=== PATIENT | female | born 1970 | race Caucasian/White ===

== ENCOUNTER 2024-03-19 09:00 | Emergency (ER) | payer OTHER ==
[2024-03-19 09:40] VITALS: BP 153/80; O2SAT 97
--- NOTE | 2024-03-19 10:25 | ED Physician Documentation ---
PD HPI UPPER EXT INJURY - Stated complaint Stated Complaint: RT FINGER LAC - Chief complaint Chief Complaint: Laceration - History obtained from History obtained from: Patient - History of Present Illness Location: Right, Finger Type of injury: Blunt / blow (recycling bin tipped and fell as she was holding it, smashing forcefully on her fingers tip onto the ground. Main injury middle finger but also some of the index finger tip right hand.) Where injury occurred: Work Timing - onset: Today Timing - details: Abrupt onset, Still present Improved by: Rest Worsened by: Moving, Palpating Associated symptoms: Swelling (finger tip with swellng and tedner but mainly laceration of nailbed with lifting of base of nail from bed.). No: Weakness, Numbness Similar symptoms before: Has not had sx before Recently seen: Not recently seen Review of Systems Neurologic: denies: Focal weakness, Numbness PD PAST MEDICAL HISTORY - Past Medical History Past Medical History: Yes Cardiovascular: Hypertension, High cholesterol Respiratory: None Neuro: CVA Endocrine/Autoimmune: Type 2 diabetes GI: None BULB GROWER: None : None HEENT: None Psych: None Musculoskeletal: None Derm: None - Past Surgical History Past Surgical History: Yes Ortho: Arthroscopic surgery /BULB GROWER: section - Present Medications Home Medications: Ambulatory Orders Medication Instructions Recorded Confirmed Aspirin [Aspirin EC] 81 mg PO DAILY 03/19/24 03/19/24 Atorvastatin Calcium 40 mg PO DAILY 03/19/24 03/19/24 HYDROcod/ACETAM 5/325 [[place] 5/325] 1 ea PO Q6H PRN #10 tablet 03/19/24 Losartan Potassium [Cozaar] 100 mg PO DAILY 03/19/24 03/19/24 Meloxicam [Mobic] 7.5 mg PO BID 10 Days #20 tablet 03/19/24 cephALEXin [Keflex] 500 mg PO TID #20 cap 03/19/24 metFORMIN [Glucophage] 500 mg PO BIDWM 03/19/24 03/19/24 - Allergies Allergies/Adverse Reactions: Allergies Allergy/AdvReac Type Severity Reaction Status Date / Time No Known Drug Allergies Allergy Verified 03/19/24 09:03 - Social History Does the pt smoke?: No Smoking Status: Former smoker Does the pt drink ETOH?: Yes Does the pt have substance abuse?: No - Immunizations Immunizations are current?: Yes - POLST Patient has POLST: No PD ED PE NORMAL - Vitals Vital signs reviewed: Yes - General General: Alert and oriented X 3, Well developed/nourished - Derm Derm: Warm and dry - Extremities Extremities: Other (right middle finger tip with tenderness and swelling of distal phalanx, with avulsion of proximal 2/3 of the nail from bed with lac underneath. No FB. The nychial fold is intact. Sensation at tip palmar aspect is good. index finger with mild abrasion dorsal. nailbed intact. ) - Neuro Neuro: Alert and oriented X 3, No motor deficit (flex and extension at DIP is good. ), No sensory deficit Results - Vitals Vitals: Vital Signs - 24 hr 03/19/24 09:04 Temperature 36.3 C L Heart Rate 74 Respiratory 16 Rate Blood Pressure 153/80 H O2 Saturation 97 - Rads (name of study) right finger Relevant Findings:: Prelim report reviewed, EMP independent interpretation of test (tuft fracture min displaced, not involving joint. ) Procedures - Laceration (location) right index finger tip nailbed Length in cm: 1.3 Wound type: Curved, Irregular, Into subcut fat, Clean Neurovascular status: Sensory intact, Motor intact, Vascular intact Tendon involvement: Tendon intact Anesthesia: Lidocaine 1% (local at laceration/nailbed.) Wound preparation: Wound explored, To the base Skin layer closure: Interrupted, Size #-0 - enter number (4), Sutures - enter # (3 sutures placed after good cleaning of the nail and underneath. The nail replaced and sutured into nychial fold and a third to approximate nailbed side.) Other: Patient tolerated well, No complications, Neurovascular intact, Dressing applied, Tetanus UTD Departure - Departure Disposition: 01 Home, Self Care Clinical Impression: Open fracture of tuft of distal phalanx of finger, Nailbed laceration, finger Condition: Stable Record reviewed to determine appropriate education?: Yes Prescriptions: cephALEXin [Keflex] 500 mg PO TID #20 cap Meloxicam [Mobic] 7.5 mg PO BID 10 Days #20 tablet HYDROcod/ACETAM 5/325 [[place] 5/325] 1 ea PO Q6H PRN #10 tablet PRN Reason: Pain Comments: You do have a fracture at the tuft/tip part of the finger. It does not involve the joint. This should heal together into a ball shape like it was to begin with. However will be tender during the healing process for likely a month or so. The nailbed laceration should heal into a good position using the fingernail as the splint over that location. We do worry about infection and injuries like this so take antibiotics cephalexin 3 times daily for the next 5 days. Anti-inflammatories will be useful for this. I prescribed 1 twice daily for the next 7 to 10 days to take with food. To that add Tylenol 500 to 650 mg 4 times daily for pain. If needed for worse pain in the short-term, I also prescribed hydrocodone/acetaminophen as this type of injury can be reasonably painful for the first few days. It should feel better with the medication. Elevate and cool towels or temperature to it to reduce swelling. It is okay to wash and shower. Clean off the wound twice a day with soap and water, or peroxide and water. Apply some antibiotic ointment to it to keep it moist. Also to watch for signs of infection such as purulence, redness or increasing pain. Return to your primary care or the ER at the specified time for suture removal. Suture removal in about 10 to 12 days to allow time for the nailbed to heal before removing of the sutures. At that point the current nail will likely be ready to just fall off. The new nail should grow in smoothly in that space over the next few months. I am prescribing a short course of narcotic pain medication for you. These are potentially dangerous and addictive medications that should be used carefully. These medications may constipate you. Take an [id number] stool softener such as docusate twice daily with plenty of water while taking these medications. If you go 24 hours without a bowel movement, take [id number] MiraLAX, per package instructions. Do not drink or drive while taking these medications. If you received narcotic or sedating medications while in the emergency department do not drive for 24 hours. Store this medication in a safe, secure place and out of reach of children. It is a violation of federal law to give or sell this medication to another person or to use in a manner other than prescribed. The ED will not refill narcotic prescriptions, including prescriptions lost or stolen. You can dispose of unwanted medications at the [facility]'s office or at several pharmacies such as [facility]. Forms: PCP List, Activity restrictions Discharge Date/Time: 03/19/24 12:30
[2024-03-19] MEDS: IBUPROFEN 600 MG TABLET PO STA (10:50)
[2024-03-19] MEDS: ACETAMINOPHEN 325 MG TABLET PO STA (10:50)
--- NOTE | 2024-03-19 10:58 | XRAY Report ---
PROCEDURE: Finger(s) RT INDICATIONS: smashed middle finger tip TECHNIQUE: PA hand, 2 views of the middle finger acquired. COMPARISON: None. FINDINGS: Bones: Minimally displaced and comminuted fracture of the tuft of the 3rd distal phalanx. No additio nal osseous fracture is seen. Soft tissues: Skin irregularity and soft tissue edema are seen at the distal finger. IMPRESSION: Minimally displaced comminuted fracture of the 3rd distal phalangeal tuft. Reviewed by: Jayce Solis MD on 03/19/2024 10:57 AM PDT Approved by: Jayce Solis MD on 03/19/2024 10:57 AM PDT Station ID: [id number]
[2024-03-19] MEDS: cephALEXin 250 MG CAPSULE PO STA (12:11)
== END 2024-03-19 12:30 | disposition home or self-care (01) ==
LOC: ED 09:00
DX: S62.632B Displaced fracture of distal phalanx of right middle finger, initial encounter for open fracture (principal); S61.310A Laceration without foreign body of right index finger with damage to nail, initial encounter; W20.8XXA Other cause of strike by thrown, projected or falling object, initial encounter; I10 Essential (primary) hypertension; E78.00 Pure hypercholesterolemia, unspecified; E11.9 Type 2 diabetes mellitus without complications; Z86.73 Personal history of transient ischemic attack (TIA), and cerebral infarction without residual deficits; Z79.82 Long term (current) use of aspirin; Z79.899 Other long term (current) drug therapy; Z79.84 Long term (current) use of oral hypoglycemic drugs; Z87.891 Personal history of nicotine dependence
CPT/HCPCS: 12001; 73140; 99283; 99284; A9270; 1040M

== ENCOUNTER 2024-06-27 13:09 | Outpatient (CLI) | payer OTHER ==
[2024-06-27 17:50] LABS: HCT - HEMATOCRIT 37.6 % (37.0-47.0); HGB - HEMOGLOBIN 12.3 g/dL (12.0-16.0); MEAN CORPUSCULAR HEMOGLOBIN 30.8 pg (27.0-31.0); MEAN CORPUSCULAR HGB CONC 32.7 g/dL (32.0-36.0); MEAN PLATELET VOLUME 9.8 fL (7.9-10.8); RED CELL DISTRIBUTION WIDTH 12.6 % (12.0-15.0)
[2024-06-27 18:25] LABS: ALBUMIN 4.7 g/dL (3.2-5.5); ALBUMIN/GLOBULIN RATIO 1.6 (1.0-2.2); ALKALINE PHOSPHATASE 60 IU/L (42-121); ALT ALANINE AMINOTRANSFERASE 25 IU/L (10-60); AST ASPARTATE AMINOTRANSFERASE 19 IU/L (10-42); BILIRUBIN,TOTAL 1.8 mg/dL (0.2-1.0); BUN - BLOOD UREA NITROGEN 27 mg/dL (6-20); CALCIUM 10.1 mg/dL (8.5-10.3); CARBON DIOXIDE - CO2 27 mmol/L (21-32); CHLORIDE 105 mmol/L (101-111); CHOL/HDL RATIO 3.4 (<4.4); CHOLESTEROL 151 mg/dL; CREATININE 0.9 mg/dL (0.6-1.3); GFR - MDRD 65 (>89); GLUCOSE 115 mg/dL (74-104); HDL CHOLESTEROL 44 mg/dL; LDL CHOLESTEROL,CALCULATED 69 mg/dL; LDL/HDL RATIO 1.6 (<4.4); SODIUM 140 mmol/L (135-145); TOTAL PROTEIN 7.7 g/dL (6.4-8.9); TRIGLYCERIDES 192 mg/dL; VLDL CHOLESTEROL 38 mg/dL
[2024-06-27 18:42] LABS: THYROID STIMULATING HORMONE 1.59 uIU/mL (0.34-5.60)
[2024-06-27 20:42] LABS: ESTIMATED AVERAGE GLUCOSE 134 mg/dL (70-100); HEMOGLOBIN A1c% 6.3 % (4.27-6.07)
== END 2024-06-27 13:10 | disposition home or self-care (01) ==
LOC: LAB.N 13:09
PROVIDERS: ATTEND Obstetrics & Gynecology
DX: E11.69 Type 2 diabetes mellitus with other specified complication (principal); E66.9 Obesity, unspecified; E78.1 Pure hyperglyceridemia; Z68.42 Body mass index [BMI] 45.0-49.9, adult; Z13.0 Encounter for screening for diseases of the blood and blood-forming organs and certain disorders involving the immune mechanism
CPT/HCPCS: 36415; 80053; 80061; 83036; 83721; 84443; 85027